=== PATIENT | male | born 1950 | race Caucasian/White ===

== ENCOUNTER 2018-03-25 15:58 | Emergency (ER) ==
[2018-03-25 16:04] VITALS: BMI 48.9
--- NOTE | 2018-03-25 17:53 | ED.PDOC ---
General ED Provider: Dr. LASHON LAUREN Chief Complaint: Fall Stated Complaint: Falling episode. [place] was in [place] cabin, attempted to get out of his bed to use BR but had spontaneous loss of bowel then slipped on the floor and could not get up. Was assisted up and ambulance summoned to have him checked out. Currently denies problems. Has chronic back pain and denies new problems./ Believes he ate something last evening that upset his stomach Time Seen by Physician: 16:50 Mode of Arrival: Walk-In Information Source: Patient Exam Limitations: Clinical condition Referred to ED by: Other Nursing and Triage Documentation Reviewed and Agree: Yes Does patient meet sepsis criteria?: No System Inflammatory Response Syndrome: Not Applicable Sepsis Protocol: For patient's 13 years and over: Temp is 96.8 and below OR 101 and greater Pulse >90 BPM Resp >20/minute Acutely Altered Mental Status Are patient's symptoms suggestive of a new infection, such as: -Pneumonia -Skin, Soft Tissue -Endocarditis -UTI -Bone, Joint Infection -Implantable Device -Acute Abdominal Infection -Wound Infection -Meningitis -Blood Stream Catheter Infection -Unknown Musculoskeletal Complaint Exam - Back Pain Complaint/Exam Onset/Duration: earlier today Symptoms Are: Resolved Timing: Intermittent Episodes Lasting: Minutes Initial Severity: Moderate Current Severity: Mild Location: Reports: Diffuse Character: Reports: Dull, Aching Aggravating: Reports: Movements Alleviating: Reports: Rest Associated Signs and Symptoms: Reports: Weakness, Bowel incontinence. Denies: Swelling, Redness, Bruising, Fever, Numbness, Tingling, Abdominal pain, Flank pain, Bladder incontinence, Weight loss, Pain with weight bearing Related History: Denies: Similar episode TAD Risk Factors: Reports: None AAA Risk Factors: Reports: None Cauda Equina Risk Factors: Reports: None Epidural Abcess Risk Factors: Reports: None Related Surgical History: Reports: None Focal Tenderness: Yes Paraspinal Muscle Tenderness: No Paraspinal Muscle Spasm: No Scoliosis: No Lordosis: No Kyphosis: No SLR Test: Right Negative, Left Negative Hip Motion Testing Pain: Right Negative, Left Negative Focal Weakness: Present: None Focal Sensory Loss: Present: None Differential Diagnoses: Strain, Other (contusion ) Review of Systems - Review Of Systems Constitutional: Reports: Weakness Eyes: Reports: No symptoms Ears, Nose, Mouth, Throat: Reports: No symptoms Respiratory: Reports: No symptoms Cardiac: Reports: No symptoms GI: Reports: Abdomen distended, Diarrhea. Denies: Blood streaked bowels, Vomiting : Reports: No symptoms Musculoskeletal: Reports: Back pain Skin: Reports: Other (stasis BL LE /) Neurological: Reports: No symptoms Endocrine: Reports: No symptoms Hematologic/Lymphatic: Reports: No symptoms All Other Systems: Reviewed and Negative Past Medical History - Past Medical History Previously Healthy: No Endocrine: Reports: DM 2, Dyslipidemia Cardiovascular: Reports: Hypertension Respiratory: Reports: COPD Hematological: Reports: None Gastrointestinal: Reports: GERD Genitourinary: Reports: None Neuro/Psych: Reports: None Musculoskeletal: Reports: Arthritis, Back Pain, Joint Pain Cancer: Reports: None - Surgical History General Surgical History: Reports: Unknown - Family History Family History: Reports: Unknown - Social History Smoking Status: Never smoker Hx Substance Use: No Alcohol Screening: None - Immunizations Tetanus Shot up to Date: Yes Physical Exam - Physical Exam Appearance: Ill-appearing, Obese Ill-appearing: Moderate Pain Distress: Moderate Eyes: [id number], EOMI, Conjunctiva clear ENT: Ears normal, Nose normal, Oropharynx normal Respiratory: Airway patent, Breath sounds clear, Breath sounds equal, Respirations nonlabored Cardiovascular: RRR, Pulses normal, No rub, No murmur GI/: Soft, Nontender, No masses, Bowel sounds normal, No Organomegaly Musculoskeletal: Normal strength, ROM intact, Limited ROM, Edema Skin: Warm (Lower extremity stasis changes), Dry Psychiatric: Affect appropriate, Anxious Critical Care Note - Critical Care Note Total Time (mins): 0 Course - Course Hematology/Chemistry: 03/25/18 18:16 03/25/18 18:16 Orders, Labs, Meds: Lab Review 03/25/18 03/25/18 03/25/18 18:16 18:16 19:00 WBC 6.99 RBC 5.10 Hgb 14.1 Hct 43.2 MCV 84.7 MCH 27.6 MCHC 32.6 RDW Coeff of Gabe 16.9 H Plt Count 190 Immature Gran % (Auto) 0.4 Neut % (Auto) 91.0 Lymph % (Auto) 2.7 L [place] % (Auto) 5.2 Eos % (Auto) 0.6 Baso % (Auto) 0.1 Immature Gran # (Auto) 0.0 Neut # (Auto) 6.4 Lymph # (Auto) 0.2 L [place] # (Auto) 0.4 Eos # (Auto) 0.0 Baso # (Auto) 0.0 Sodium 139 Potassium 4.5 Chloride 110 H Carbon Dioxide 20 L Anion Gap 13.5 BUN 34 H Creatinine 1.50 H Estimated GFR (MDRD) 46.00 BUN/Creatinine Ratio 22.66 Glucose 156 H Calcium 8.9 Total Bilirubin 2.1 H AST 20 ALT 20 Alkaline Phosphatase 80 Total Protein 6.4 Albumin 3.1 L Globulin 3.3 Albumin/Globulin Ratio 0.94 Urine Color Dark Urine Clarity Clear Urine pH 5.0 Ur Specific [place] 1.025 Urine Protein 3+ Urine Glucose (UA) Negative Urine Ketones Negative Urine Blood 2+ Urine Nitrite Negative Urine Bilirubin Negative Urine Urobilinogen 0.2 Ur Leukocyte Esterase Trace Urine Microscopic RBC 10-20 Urine Microscopic WBC 5-10 Ur Squamous Epith Cells 5-10 Urine Bacteria Trace Hyaline Casts 0-2 Urine Mucus 1+ Urine Yeast Trace Orders Category Date Time Status CBC W/ AUTO DIFF Stat LAB 03/25/18 18:16 Completed CMP [COMPREHENSIVE METABOLIC PANEL] Stat LAB 03/25/18 18:16 Completed UA [URINALYSIS C & S IF INDICATED] Stat LAB 03/25/18 19:00 Completed URINE CULTURE Stat LAB 03/25/18 19:[address] LUMBAR SPINE W/O CONTRAST Stat RADS 03/25/18 17:[address] PELVIS W/O CONTRAST Stat RADS 03/25/18 17:51 Completed Vital Signs: Temp Pulse Resp BP Pulse Ox 03/25/18 20:11 101.4 F H 116/87 03/25/18 16:00 101.1 F H 90 16 159/74 H 95 Departure - Departure Time of Disposition: 19:00 Disposition: HOME SELF-CARE Discharge Problem: Falling episodes, Diarrhea Instructions: Fall Prevention for Older Adults (ED), Acute Diarrhea (ED) Condition: Fair Pt referred to PMD for follow-up: No IPMP verified?: No Additional Instructions: Patient discharged and was planning on finding a hotel in [place] [facility] called and left with patient Prescriptions: Insulin Regular, Human [Humulin R U-500 Kwikpen] 18 unit SQ TID #1 insuln.pen Pen Needle, Diabetic [Insulin Pen Needle] 1 each SQ TID #90 dis.needle Pen Needle, Diabetic [Insulin Pen Needle] 1 each SQ TID #90 dis.needle Allergies/Adverse Reactions: Allergies Penicillins Adverse Reaction (Verified 03/25/18 16:05) Home Medications: Ambulatory Orders Insulin Regular, Human [Humulin R U-500 Kwikpen] 18 unit SQ TID #1 insuln.pen Pen Needle, Diabetic [Insulin Pen Needle] 1 each SQ TID #90 dis.needle 03/25/18 Pen Needle, Diabetic [Insulin Pen Needle] 1 each SQ TID #90 dis.needle 03/25/18 Disposition Discussed With: Patient GI Complaint Exam - Vomiting/Diarrhea Complaint/Exam Symptoms Are: Resolved Episodes of Diarrhea Over Last 24 Hours: 1 Initial Severity: Moderate Current Severity: None Character of Diarrhea: Reports: Watery Aggravating: Reports: Food Associated Signs and Symptoms: Reports: Light-headedness. Denies: Dizziness, Melena, Hematemesis, Fever, Abdominal pain, Cramping Last Bowel Movement: 2 hrs ago Abdominal Findings: Present: None Differential Diagnoses: Viral Gastroenteritis
--- NOTE | 2018-03-25 19:01 | CT ---
EXAM: CT of the lumbar spine. HISTORY: Fall. COMPARISON: None. TECHNIQUE: Contiguous axial images at 3 mm intervals were obtained through the lumbar spine. Sagitt al and coronal reformats were reviewed. No contrast. FINDINGS: There are five [id number] vertebral bodies. There is mild curvature spine to the lef t measuring 7 degrees. There is anterolisthesis of L5 on S1 measuring 7 mm. . It appears to be due to degenerative change. No definite pars defect is seen. There is slight retrolisthesis of L2 on L3 , measuring 3 mm. The vertebral heights are well maintained. There are no acute or healing fractures . Bone mineralization is normal. There are no lytic or blastic lesions. The soft tissues are unrem arkable. There is no retroperitoneal fluid collection. The aorta is normal. Bilateral sacroiliitis is seen with bilateral ankylosis. Segmental analysis: L1-2: Disc narrowing. Posterior osteophytes. Bilateral facet hypertrophy. Bilateral neural forame n narrowing. L2-3: Severe disc narrowing. Posterior ossified disc complex. Facet hypertrophy. Bilateral neural foramen narrowing and spinal canal narrowing.. L3-4: Facet hypertrophy. Minimal disc bulge.. L4-5: Disc narrowing. Facet hypertrophy. Broad-based disc bulge. Bilateral neural foraminal narro wing.. L5-S1: Severe disc narrowing. Facet hypertrophy. Severe bilateral neural foramen narrowing. IMPRESSION: 1. No acute fractures. 2. Severe degenerative disc disease. Spinal canal neural foramen narrowing as described. 3. Bilateral sacroiliitis.
--- NOTE | 2018-03-25 19:04 | CT ---
EXAM: CT of the pelvis without contrast. HISTORY: Fall. COMPARISON: None. TECHNIQUE: Contiguous axial images were obtained through the bony pelvis. Sagittal and coronal refo rmats were reviewed. FINDINGS: There are no acute or healing fractures. There are no lytic or blastic lesions. Joint na rrowing and osteophyte formation is seen in both hips. There is no joint effusion. There is joint n arrowing and ankylosis of the sacroiliac joints bilaterally. There is severe degenerative changes of the lumbosacral spine. The soft tissues are unremarkable. IMPRESSION: 1. No acute fractures. 2. Osteoarthritis. 3. Bilateral sacroiliitis with ankylosis.
[2018-03-25 20:12] VITALS: BP 116/87; TEMP 101.4
[2018-03-25] MEDS ORDERED: HUMULIN R SUBCUT STA (20:17)
== END 2018-03-25 20:30 | disposition home or self-care (01) ==
LOC: ED 15:58
DX: R19.7 Diarrhea, unspecified (principal); W01.0XXA Fall on same level from slipping, tripping and stumbling without subsequent striking against object, initial encounter; R53.1 Weakness; E11.9 Type 2 diabetes mellitus without complications; E78.5 Hyperlipidemia, unspecified; I10 Essential (primary) hypertension; M54.9 Dorsalgia, unspecified; G89.29 Other chronic pain
CPT/HCPCS: 36415; 80053; 81001; 85025; 87086; 99284